=== PATIENT | male | born 1945 | race African-American/Black ===

== ENCOUNTER 2020-02-17 16:52 | Inpatient (IN) | payer OTHER ==
[2020-02-17] VITALS (9 sets, daily range): BP systolic 120–186; BP diastolic 71–93
[~2020-02-17] VITALS: Ht 182.9 cm; Wt 78.0 kg
[2020-02-17 17:43] LABS: ABSOLUTE NEUTROPHILS 5.8 thou/uL (1.4-8.2); BASOPHILS 0.1 % (0.0-2.0); HEMATOCRIT 42.4 % (42.0-52.0); HEMOGLOBIN 13.4 gm/dL (14.0-18.0); LYMPHOCYTES 13.7 % (24.0-44.0); MCH 24.5 pg (26.0-34.0); MCHC 31.5 g/dL (28.0-37.0); MCV 77.7 fL (80.0-100.0); MONOCYTES 6.4 % (1.0-8.0); PLATELET COUNT 170 thou/uL (150-400); POLYS 79.8 % (36.0-66.0); RBC 5.46 mil/uL (4.50-6.00); RDW 17.1 % (10.5-14.5); WBC 7.2 thou/uL (4.0-11.0)
[2020-02-17 18:46] LABS: ALBUMIN 3.7 g/dL (3.4-5.0); CALCIUM 9.1 mg/dL (8.5-10.1); CREATININE 2.7 mg/dL (0.7-1.3); MAGNESIUM 2.2 mg/dL (1.8-2.4); TOTAL BILIRUBIN 0.6 mg/dL (0.2-1.0); TOTAL PROTEIN 8.4 g/dL (6.4-8.2); TROPONIN-I 0.07 ng/mL (<0.06)
[2020-02-17 19:17] LABS: DIRECT BILIRUBIN 0.1 mg/dL (<0.1-0.2)
[2020-02-17 19:21] LABS: POTASSIUM 7.1 mmol/L (3.5-5.1)
[2020-02-17 19:42] LABS: URINE BILIRUBIN NEGATIVE (Negative); URINE BLOOD TRACE (Negative); URINE CLARITY CLEAR; URINE COLOR YELLOW; URINE GLUCOSE-RANDOM* 3+ (Negative); URINE KETONES NEGATIVE (Negative); URINE LEUKOCYTES-REFLEX NEGATIVE (Negative); URINE NITRITE-REFLEX NEGATIVE (Negative); URINE PROTEIN (DIPSTICK) TRACE (Negative); URINE UROBILINOGEN 0.2 E.U./dl (0.2-1.0)
[2020-02-17 20:02] LABS: CALCIUM 8.8 mg/dL (8.5-10.1); CREATININE 2.5 mg/dL (0.7-1.3)
[2020-02-17 20:03] LABS: POTASSIUM 5.6 mmol/L (3.5-5.1)
[2020-02-17] MEDS ORDERED: LISINOPRIL40 MG PO (21:02)
[2020-02-17] MEDS ORDERED: LIPITOR 40 MG T40 M1 PO (21:02)
[2020-02-17] MEDS ORDERED: TRADJENTA5 MG (21:02)
[2020-02-17] MEDS ORDERED: GLIMEPIRIDE4 MG PO (21:02)
[2020-02-17] MEDS ORDERED: CHLORTHALIDONE25 MG PO (21:02)
[2020-02-17] MEDS ORDERED: LANTUSSOLASTAR SUBQ (21:03)
[2020-02-17] MEDS ORDERED: IRON325 M1 PO (21:04)
[2020-02-17] MEDS ORDERED: FISH OIL 1,0001 EAC9 PO (21:04)
[2020-02-17] MEDS ORDERED: B-121000 MC2 PO (21:07)
--- NOTE | 2020-02-17 22:28 | NUR ---
This RN admitted patient to ICU room 241. Patient arrived on insulin gtt and fluids. Discussed patient status with Arina Ackerman NP, awaiting more orders. Patient stable, and settled into room. Admission assessment complete.
[2020-02-18] VITALS (32 sets, daily range): BP systolic 115–187; BP diastolic 56–120
[2020-02-18 00:25] LABS: ALBUMIN 3.9 g/dL (3.4-5.0); CALCIUM 9.1 mg/dL (8.5-10.1); CREATININE 2.2 mg/dL (0.7-1.3); MAGNESIUM 2.2 mg/dL (1.8-2.4); PHOSPHORUS 4.2 mg/dL (2.6-4.7); POTASSIUM 4.5 mmol/L (3.5-5.1)
[2020-02-18 05:10] LABS: HEMATOCRIT 37.6 % (42.0-52.0); MCH 24.3 pg (26.0-34.0); MCHC 31.9 g/dL (28.0-37.0); RBC 4.94 mil/uL (4.50-6.00); RDW 16.4 % (10.5-14.5); WBC 6.8 thou/uL (4.0-11.0)
[2020-02-18 05:32] LABS: BE(vivo) -9.7 mmol/L (-2 to +3); HCO3 14.5 mmol/L (22.0-26.0); PCO2 VENOUS 27.4 mmHg (41.0-51.0); PO2 VENOUS 32.6 mmHg (35.0-45.0)
[2020-02-18 06:03] LABS: ALBUMIN 3.4 g/dL (3.4-5.0); ANION GAP 17 mmol/L (7-16); BUN 57 mg/dL (7-18); CALCIUM 8.6 mg/dL (8.5-10.1); CHLORIDE 100 mmol/L (98-107); CHOLESTEROL 133 mg/dL (<200); CO2 17 mmol/L (21-32); CREATININE 2.2 mg/dL (0.7-1.3); GLUCOSE 273 mg/dL (74-106); HDL CHOLESTEROL 34 mg/dL (>40); LDL CHOLESTEROL 74 mg/dL (<100); MAGNESIUM 2.1 mg/dL (1.8-2.4); PHOSPHORUS 4.3 mg/dL (2.5-4.9); POTASSIUM 5.4 mmol/L (3.5-5.1); SODIUM 134 mmol/L (136-145); TC:HDL 3.9 Ratio (Not establshd); TRIGLYCERIDE 125 mg/dL (<150); VLDL 25 mg/dL (<40)
[2020-02-18 06:21] LABS: SERUM ASSESSMENT Clear
--- NOTE | 2020-02-18 06:34 | NUR ---
Vital signs stable. Patient remains on DKA protocol, labs are trending in the right direction. Patient vomited once last night, still complains of severe nauseau. Patient still complains of severe abdominal pain with minor relief from PRN pain medications. Will continue to monitor.
--- NOTE | 2020-02-18 07:39 | EKG ---
[address] [place] [address] ELECTROCARDIOGRAM REPORT Name: SARAH CONDE Room #: 241-P ADM IN M.R.#: [id number] Admission: 02/17/20 Attend Phys: Korey Pete MD Discharge: Date of : 45 Report #: [id number] [facility] ED Test Date: 2020-02-17 Test Time: 17:09:37 Pat Name: SARAH CONDE Department: Room: [facility] Gender: M Rolled Seat Trimmer: GLADYS : 1945 Requested By: Cheo Tobin Order Number: [id number] MD: Juancho Alvarez Measurements Intervals [place] Rate: 81 P: 24 [place]: 187 QRS: 72 QRSD: 108 T: 47 QT: 349 QTc: 405 Interpretive Statements Sinus rhythm Normal tracing No previous ECG available for comparison Electronically Signed On 02-18-2020 7:38:49 CONVENTION PLANNER by Juancho Alvarez [email or web address] <ELECTRONICALLY SIGNED> By: Juancho Alvarez MD, [facility] 02/18/20 0738 1709 1709 Juancho Alvarez MD, FACC /EPI
--- NOTE | 2020-02-18 08:00 | NUR ---
ASSUMMED CARE FROM THE NIGHT NURSE AT 0700. PATIENT IS ALERT AND RESPONSIVE RATING PAIN 7-8/10 IN ABD. INSULIN DRIP TAPPERED FOR BS
[2020-02-18 11:58] LABS: % SATURATION 7 % (20-39); IRON 17 ug/dL (65-175); MAGNESIUM 1.9 mg/dL (1.8-2.4); POTASSIUM 5.3 mmol/L (3.5-5.1); TIBC 246 ug/dL (250-450)
--- NOTE | 2020-02-18 18:41 | NUR ---
PATIENT IS PROGRESSING TOWARDS OUTCOMES GOALS BLOOD GLUCOSE LEVELS MAINTAINED AND DRIP IN THE MAINTANCE RANGE. UP TO 206 AT 1820. WILL CONTINUE TO MONITOR. ANION GAP CLOSED AT NOON. DR WEST AND DR ESPINOSA AWARE. ORDERS NOTED. O2 SAT IN THE UPPER 90'S AND AFEBRILE. NO RESP DISTRESS NOTED. INFORMED SHIKHA HIS S/O OF HIS COVID TEST RESULTS. PAIN NOW STAYING AT A 3/10 AND SLEEPING AT INTERVALS.
[2020-02-19] VITALS (32 sets, daily range): BP systolic 115–177; BP diastolic 59–110
[2020-02-19 05:33] LABS: ABSOLUTE NEUTROPHILS 7.1 thou/uL (1.4-8.2); BASOPHILS 0.2 % (0.0-2.0); EOSINOPHILS 0.3 % (0.0-3.0); HEMATOCRIT 35.4 % (42.0-52.0); HEMOGLOBIN 11.2 gm/dL (14.0-18.0); MCH 24.5 pg (26.0-34.0); MCHC 31.7 g/dL (28.0-37.0); MCV 77.4 fL (80.0-100.0); MONOCYTES 3.6 % (1.0-8.0); PLATELET COUNT 193 thou/uL (150-400); POLYS 88.9 % (36.0-66.0); RBC 4.57 mil/uL (4.50-6.00); RDW 16.6 % (10.5-14.5)
[2020-02-19 06:21] LABS: FIBRINOGEN 373.8 mg/dL (210-360); PROTIME 10.7 Seconds (9.3-11.4)
[2020-02-19 06:22] LABS: ALBUMIN 3.2 g/dL (3.4-5.0); CALCIUM 8.3 mg/dL (8.5-10.1); CREATININE 1.7 mg/dL (0.7-1.3); MAGNESIUM 1.8 mg/dL (1.8-2.4); POTASSIUM 5.6 mmol/L (3.5-5.1); TOTAL BILIRUBIN 0.6 mg/dL (0.2-1.0); TOTAL PROTEIN 6.8 g/dL (6.4-8.2)
--- NOTE | 2020-02-19 07:16 | HC ---
[facility] [address] CONSULTATION Name: SARAH CONDE Room #: 241-P ADM IN M.R.#: [id number] Admission: 02/17/20 Attend Phys: Korey Pete MD Discharge: Date of : 45 Report #: [id number] THIS REPORT FOR: cc: Kang Paredes MD, Douglas James MD McKittrick,Víctor Payne MD ~ DATE OF SERVICE: 02/18/2020 REQUESTING PHYSICIAN: Korey Pete MD PRIMARY CARE PHYSICIAN: Kang Paredes MD REASON FOR CONSULTATION: Pancreatic mass seen on CT abdomen without contrast. HISTORY OF PRESENT ILLNESS: The patient is a 75-year-old male who has about a 3-5 antecedent history of nausea, vomiting, diarrhea, was found to be COVID positive by PCR. He is also thought to have a diabetic ketoacidosis. CT abdomen and pelvis without contrast done on 02/16 revealed what they described as an indeterminate mass measuring 2.7 x 2.8 x 3.1 cm on series 2, image 42-51 just medial to the inferior tip of the spleen along the distal margin of the pancreatic tail. There is indeterminate ovoid area of nodularity within the medial and the right adrenal gland measuring 1.4 x 1.0 cm. Left kidney not visualized suggesting prior nephrectomy. Chest x-ray during the same time showed no acute abnormalities. The patient denies any recent headache, fevers, chills, new shortness of breath, new arm or leg swelling, blood in his urine or stool, significant weight change. Does admit that he thought he is not the best at managing his diabetes. PAST MEDICAL HISTORY: Notable for the left nephrectomy, he thinks about 14 years ago at [facility]. He seems to recognize the name of Dr. Bhakta as his previous urologist, but he is not sure. It sounds like it was negative, did not receive any adjuvant therapies. Also history of carotid stenosis, history of hypertension, history of hyperlipidemia, history of diabetic neuropathy, history of type 2 diabetes, also renal insufficiency. SOCIAL HISTORY: Retired, used to work help [employer] at the [employer]. Smoked for about 40-pack year, stopped 10 years ago. Occasional alcohol. Indeterminate street drugs. FAMILY HISTORY: Mostly diabetes and hypertension in his children and grandchildren, sounds like the children are pretty healthy. LABORATORY REVIEW: Here in the hospital notable for creatinine of 2.2, down [facility] [address] [place] [address] CONSULTATION Name: SARAH CONDE Room #: 241-P ADM IN .R.#: [id number] Admission: 02/17/20 Attend Phys: Korey Pete MD Discharge: Date of : 45 Report #: [id number] from 2.7, unclear baseline. AST slightly elevated at 51, lipase 251. Total bilirubin is 0.6, glucose on admit was 491, today is 273. Alkaline phosphatase 139, ALT 47. Albumin 3.4. Acetone on admission was 1.74, which is elevated. White count 6.8, hemoglobin 12, down from 13, MCV 76.0, RDW 16.4, platelet 190. Differential mostly normal. Sed rate 25. Influenza A and B negative. COVID PCR positive. Ferritin 80. UA, 3+ glucose, trace blood. MEDICATIONS: At this time currently include thiamine 100 mg daily, ascorbic acid 1500 mg b.i.d., azithromycin 500 mg IV daily, methylprednisolone 40 IV b.i.d., docosahexaenoic acid fish oil 1000 mg daily, lisinopril 40 daily, ferrous sulfate 65 daily, atorvastatin calcium 40 daily, heparin 5000 units b.i.d. subQ famotidine 20 daily, zinc 220 mg t.i.d., ceftriaxone 1 g q. 24 hours, hydralazine p.r.n., Tylenol p.r.n., Zofran p.r.n., insulin sliding scale. PHYSICAL EXAMINATION: VITAL SIGNS: Height is 6 feet, which is 182.9 cm. Weight is 170 pounds 6.7 ounces or 77.3 kilograms. Blood pressure recently 128/88, pulse 80, temperature 98.1, respirations 20. HEENT: Face is symmetrical. MOOD: Pleasant, conversant. NEUROLOGIC: Face is symmetrical. Speech and thought pattern normal. Arm and leg movement appropriate. LYMPHATICS: No enlarged lymph nodes in the supraclavicular, cervical, axillary or inguinal region. ABDOMEN: Barely obese. No obvious masses, nontender. EXTREMITIES: There may be some trace edema. ASSESSMENT AND PLAN: 1. Pancreatic tail mass measuring 2.7 x 2.8 x [address] abdomen without contrast. We will ask to get old CT abdomen from [facility] for comparison. If unavailable, would consider MRI of abdomen with and without contrast once feeling better to determine whether this is a real mass. May need to consider EUS, would also ask [facility] for path report from nephrectomy. 2. History of left kidney cancer, roughly 2006. We will try to obtain pathology report and recent notes from [facility]. 3. COVID positive by PCR. Defer possibility of remdesivir and convalescent plasma to others. 4. Renal insufficiency. Management per others and monitoring of medications and serial creatinines. 5. Diabetic ketoacidosis and history of type 2 diabetes. Defer insulin and management per others. 6. Hypertension. DAIN inhibitors and meds per others. 7. Hyperlipidemia, statins per others. 8. Peripheral neuropathy, management per others. [facility] [address] [place] [address] CONSULTATION Name: SARAH CONDE Room #: 241-P ADM IN M.R.#: [id number] Admission: 02/17/20 Attend Phys: Korey Pete MD Discharge: Date of : 45 Report #: [id number] 9. Past tobacco use. Encouraged continued cessation. We will follow with you. 10. Microcytic mild anemia. Ferritin normal range, but could be inflammatory. We will need to clarify with the patient what workup has been done when I see the patient. 11. We will need to ask about endoscopies. <ELECTRONICALLY SIGNED> By: Víctor Leal MD 02/19/20 0716 0852 0957 Víctor Leal MD /nt
--- NOTE | 2020-02-19 10:26 | NUR ---
ASSESSMENT: CM REVIEWED CHART AND ATTEMPTED TO CALL PT. PT IS IN ENHANCED ISOLATION DUE TO COVID 10. PT ALSO HAS HX OF DIAEBTES MELLITUS AND ON ADMISSIONS WAS IN DKA AND IS ON INSULIN GTT. PT LIVES WITH SIGNIFICANT OTHER IN AN APT. CM REACHED OUT TO SHIKHA HIS SIGNIFICANT OTHER AND SHE REPORTS SHE IS CURRENTLY ON HER WAY TO GO GET TESTED SINCE HE IS COVID POSITIVE. PT LIVES IN AN APT WITH HER. SHE REQUESTED TO BE CONTACTED BACK LATER IN DAY SHE IS AT APPT TO GET TESTED. CM WILL CONTINUE TO FOLLOW TO ASSIST NEEDED.
--- NOTE | 2020-02-19 12:18 | HC ---
[facility] [place] [address] CONSULTATION Name: SARAH CONDE Room #: [facility] IN M.R.#: [id number] Admission: 02/17/20 Attend Phys: Korey Pete MD Discharge: Date of : 45 Report #: [id number] THIS REPORT FOR: cc: Kang Paredes MD, Douglas James MD Al-Mubaslat, Ahmad MD ~ DATE OF SERVICE: 02/18/2020 ENDOCRINE CONSULTATION NOTE CONSULTING PHYSICIAN: Dr. Korey Pete REASON FOR CONSULTATION: DKA, type 2 diabetes mellitus. HISTORY OF PRESENT ILLNESS: This is a 75-year-old male patient whose medical background is significant for multiple medical issues including type 2 diabetes mellitus as well as history of renal cancer, hypertension, and hyperlipidemia. The patient presented to the ER in the context of progressive weakness and fatigue for several days prior to presentation. This was also associated with intractable nausea and vomiting as well as chest discomfort. On arrival to the ER, the patient was found to have metabolic changes are consistent with DKA and was then admitted to the ICU for further care and monitoring. The patient's history is noted for hypertension, hyperlipidemia as well as peripheral neuropathy. The patient is typically maintained on a combination of glimepiride 4 mg daily, linagliptin 5 mg daily as well as Lantus insulin 26 units daily. However, he rarely monitors his blood glucose values at home. The patient denies having had the significant weight changes or severe frequent headaches over the past few months. REVIEW OF SYSTEMS: CONSTITUTIONAL: Fatigue, tiredness, no fever or chills. HEENT: Negative for sore throat, sinus pain or ear drainage. PULMONARY: Occasional shortness of breath and cough, but no hemoptysis. CARDIAC: Palpitations, chest discomfort, lightheadedness, but not syncope. GASTROINTESTINAL: Abdominal discomfort, intractable nausea, vomiting and diarrhea. NEUROLOGY: Baseline issues with peripheral neuropathy, but not seizure activity or loss of consciousness. Otherwise, review of systems noncontributory other than those mentioned in HPI. PAST MEDICAL HISTORY: 1. Type 2 diabetes mellitus. [facility] [address] [place] [address] CONSULTATION Name: SARAH CONDE Room #: 241-P [facility] IN M.R.#: [id number] Admission: 02/17/20 Attend Phys: Korey Pete MD Discharge: Date of : 45 Report #: [id number] 2. Hypertension. 3. Hyperlipidemia. 4. Arthritis. 5. Peripheral diabetic neuropathy. 6. History of renal cancer. PAST SURGICAL HISTORY: Left nephrectomy, left shoulder replacement, left carotid endarterectomy, left knee arthroscopy. OUTPATIENT MEDICATIONS: Include linagliptin 5 mg daily, glimepiride 4 mg daily, Lantus insulin 26 units daily, lisinopril 40 mg daily, atorvastatin 40 mg daily, chlorthalidone 25 mg daily, ferrous sulfate 65 mg daily, fish oil supplements and vitamin B12 1000 mcg daily. ALLERGIES: No known drug allergies. FAMILY HISTORY: Noncontributory. SOCIAL HISTORY: The patient denies the use of tobacco or illicit drugs. He drinks alcohol only rarely. PHYSICAL EXAMINATION: GENERAL: I did not enter the patient's ICU room due to the lack of immediate availability of protective gear. However, I have inspected through the glass of a window as well as the glass room door and discussed his status in detail with the nursing staff and reviewed his inflow chart and vital signs at length. The patient was lying supine in bed, seems comfortable, not in apparent distress. VITAL SIGNS: Blood pressure 128/88 mmHg, heart rate is 80 beats per minute, respirations 20 per minute, temperature 36.7 degrees Celsius. CONSTITUTIONAL: He is lying supine in bed, does not appear to be in pain or distress. HEENT: Intact extraocular motions. CHEST: Upward symmetrical chest wall movement without observations of tachypnea. NEUROLOGY: Moves all extremities spontaneously, responsive to gestures, sight seems to be in a normal affect. LABORATORY RESULTS: On arrival, blood glucose was at 286 mg/dL. However, it has been under 180 mg/dL consistently for the past few hours. Sodium 134; potassium 5.4; chloride 100; CO2 of 17, on arrival, this was 10; anion gap 17, on arrival 25; BUN 57; creatinine 2.2; AST 51; lipase 251; total bilirubin 0.6; direct bilirubin 0.1; calcium 8.6; phosphorus 4.3; magnesium 2.1; alkaline phosphatase 139; ALT 47; total protein 8.4; albumin 3.4; EGFR 36. Total CPK [facility] [address] [place] [address] CONSULTATION Name: SARAH CONDE Room #: 241-P [facility] IN M.R.#: [id number] Admission: 02/17/20 Attend Phys: Korey Pete MD Discharge: Date of : 45 Report #: [id number] 264. Troponin 0.07. Total cholesterol 133, triglycerides 125, HDL 34, LDL 74. White blood count 6.8, hemoglobin 12, hematocrit 37.6, platelets 190. He is COVID-19 positive. Hemoglobin A1c has been ordered and is pending. A CT scan of the abdomen and pelvis was also performed on arrival and was noted for patchy in bed like ground glass opacities within the inferior left lower lobe, which could be infectious or personal service representative of atelectasis. Indeterminate mass-like along the margin of the tail of the pancreas measuring 2.7 x 2.8 x 3.1 cm. Primary pancreatic mass or metastatic disease cannot be excluded. Indeterminate ovoid nodule mass within the medial limb of the right adrenal gland measuring 1.4 x 1 cm and again metastatic disease cannot be excluded. ASSESSMENT AN PLAN: 1. Diabetic ketoacidosis. The patient presented in a clinical state and with metabolic abnormalities that are consistent with diabetic ketoacidosis. He had been initiated on the appropriate management with intravenous insulin therapy as well as IV fluid support and has certainly shown standard improvement as per his blood glucose values falling under adequate control as well as his metabolic parameters of CO2 and anion gap improving. However, some of these are still to be fully normalized. Given the continued metabolic abnormalities encountered as well as the need to utilize IV glucocorticoids in the patient's minimal p.o. intake, I believe that he would be best served by maintaining IV insulin therapy for the time being. Continue with IV insulin therapy as per the [facility] DKA protocol and maintain blood glucose monitoring hourly as per protocol. The patient will be considered for transition to subcutaneous insulin therapy once he demonstrates adequate clinical stability to do so. 2. Type 2 diabetes mellitus. Longstanding and maintained on a combination of basal insulin and oral antidiabetic therapy. However, the patient does not provide much glycemic data to offer insight into his recent level of control. Hemoglobin A1c has been ordered and is pending and should help shed some light on his overall level of control recently. I suspect that it would prove to be suboptimal. As noted above, the patient is currently being managed with an IV insulin and transition to subcutaneous therapy. He would likely be placed on multiple daily injections of basal bolus insulin. These doses will be determined as per his recorded IV insulin needs at that time. 3. Adrenal mass. On arrival, the patient was evaluated with a CT scan of the abdomen and pelvis and has shown concerning features of potential pancreatic mass as well as adrenal mass, both of which could represent a metastatic process. It is worth [address] [address] CONSULTATION Name: SARAH CONDE Room #: [facility] IN M.R.#: [id number] Admission: 02/17/20 Attend Phys: Korey Pete MD Discharge: Date of : 45 Report #: [id number] noting that the patient has a background that is noted for renal cancer. While this gets evaluated, I would like to assess the functional outlook of this adrenal mass by ordering an aldosterone renin activity, plasma metanephrines as well as a consideration of cortisol excess. Assessment although the patient does not appear to be cushingoid and therefore might be exempted from this part of the evaluation. This is seen as necessary despite the initial suspicious outlook for metastases because malignant adrenal lesions can also be occasionally functional. Further recommendations will be based on these findings. 4. Hyperlipidemia. The patient is known to have hyperlipidemia and is maintained on atorvastatin 40 mg daily. His lipid panel done on arrival indicates adequate control. He is to continue with the same therapy once clinically stable. 5. Positive COVID-19 pneumonitis. The patient was documented as having an active COVID-19 infection. He is currently receiving therapy accordingly including with azithromycin, Rocephin, IV glucocorticoids and seems to be doing rather well from the pulmonary standpoint thus far. I certainly appreciate this consultation by Dr. Korey Pete. <ELECTRONICALLY SIGNED> By: Alexandra Dick MD 02/19/20 1218 1033 1113 Alexandra Dick MD /nt
--- NOTE | 2020-02-19 14:26 | HC ---
[facility] [place] [address] CONSULTATION Name: SARAH CONDE Room #: [facility]- ADM IN M.R.#: [id number] Admission: 02/17/20 Attend Phys: Korey Pete MD Discharge: Date of : 45 Report #: [id number] THIS REPORT FOR: cc: Kang Paredes MD, Douglas James MD Geha,Grover Hoyos MD ~ DATE OF SERVICE: 02/18/2020 INFECTIOUS DISEASE CONSULTATION REASON FOR CONSULTATION: Evaluate COVID-19 and sepsis. HISTORY OF PRESENT ILLNESS: The patient is a 75-year-old who presents to the Emergency Room with ketoacidosis in the setting of type 2 diabetes and a 3-day history of nausea, vomiting, diarrhea, general malaise, and anorexia. He was placed in Intensive Care Unit, placed on insulin drip, IV fluids and has been seen by consultants. He does have a history of renal cell carcinoma, status post left nephrectomy. Imaging has shown ground glass opacities in his lung bases as well as a 3 x 3 cm mass in the tail of the pancreas and right adrenal gland mass. He has had general debility with peripheral neuropathy. No known COVID exposure, although his has been ill for several days before he got sick. He has had no headaches, loss of sense of taste or smell. He has had no cough or sputum production. No pleuritic chest pain or hemoptysis. No palpitations. The nausea and vomiting has improved. No diarrhea. REVIEW OF SYSTEMS: A 14-point review of system was negative other than what has been described above. PAST MEDICAL HISTORY: Diabetes, renal cell carcinoma, left nephrectomy, carotid stenosis, hypertension, hyperlipidemia, degenerative arthritis, peripheral neuropathy, left total shoulder replacement, left carotid endarterectomy, and left knee arthroscopic surgery. FAMILY HISTORY: Coronary artery disease and diabetes. SOCIAL HISTORY: Past smoker, occasional alcohol use. ALLERGIES: None known. MEDICATIONS: As noted on his MAR which was reviewed. PHYSICAL EXAMINATION: VITAL SIGNS: He was afebrile and hemodynamically stable. GENERAL: He was alert and cooperative. SKIN: Without rash or decubitus. No palpable adenopathy. [facility] [address] [place] [address] CONSULTATION Name: SARAH CONDE Room #: 241-P [facility] IN M.R.#: [id number] Admission: 02/17/20 Attend Phys: Korey Pete MD Discharge: Date of : 45 Report #: [id number] HEENT: Eyes without scleral icterus. Mouth without mucositis. Dentition in fair repair with multiple teeth missing. NECK: Supple. LUNGS: Clear to auscultation without adventitial sounds. HEART: Regular, without murmur, gallop or rub. ABDOMEN: Soft and nontender with no hepatosplenomegaly or mass. GENITOURINARY: External genitalia without mass or lesion. RECTAL: Not performed. EXTREMITIES: With trace edema in both lower extremities. Decreased sensation to fine touch in both feet. Strength was symmetric. PSYCH: Mood is without anxiety or depression. LABORATORY STUDIES: Reviewed. MICROBIOLOGY: Reviewed. IMAGING: Chest x-ray and CT scan of the abdomen and pelvis reviewed. IMPRESSION: 1. COVID-19 infection. Oxygenation remains stable on room air. He does have mild ground glass opacities on CT scan. 2. Diabetic ketoacidosis, improved. 3. Peripheral neuropathy. 4. Acute renal failure with history of left nephrectomy for renal cell carcinoma. 5. Pancreatic mass and right adrenal mass concerning for malignancy. 6. Generalized debility. RECOMMENDATIONS: We will continue with ivermectin and multivitamins. The patient does not qualify for Remdesivir at this point. Monitor chest x-ray and oxygen saturation. Control diabetes. Continue with fluids and monitoring renal function. Oncology service has been consulted. Likely need tissue sample to confirm this process. We will continue ICU support. <ELECTRONICALLY SIGNED> By: Grover Desai MD 02/19/20 1426 0030 0047 Grover Desai MD /nt
--- NOTE | 2020-02-19 17:03 | NUR ---
ASSUMED CARE AT 0700. PATIENT PROGRESSING TOWARDS THE PLAN OF CARE EVIDENCED BY DISCONTINUED USE OF INSULIN GTT TO MANAGE BS. BS UNDER CONTROL. TRANSFER ORDERS IN PER DR. ESPINOSA.
[2020-02-20] VITALS (14 sets, daily range): BP systolic 119–190; BP diastolic 68–103
--- NOTE | 2020-02-20 06:00 | NUR ---
A VERY DELIGHTFUL GENTLEMAN AWAKE AND ALERT. IN ISOLATION FOR POSITIVE COVID VSS SINUS RHYTHM. VOIDS PER URINAL. TORDAL 1 X FOR EPIGASTRIC PAIN. SLEPT MOST OF NIGHT. DKA PROTOCAL COMPLETE. PROGRESSING TOWARD GOALS. AWAITING TO TX TO 3 WEST. CCU TELE OVERFLOW
[2020-02-20 08:21] LABS: CALCIUM 8.8 mg/dL (8.5-10.1); CREATININE 1.8 mg/dL (0.7-1.3); POTASSIUM 5.1 mmol/L (3.5-5.1)
[2020-02-20] MEDS ORDERED: PREDNISONE 20 M20 M1 PO (11:08)
[2020-02-20] MEDS ORDERED: AZITHROMYCIN500 MG PO (11:08)
--- NOTE | 2020-02-20 12:18 | NUR ---
ASSUMED CARE AT 0700, ASSESSMENT AND VITAL SIGNS COMPLETED PER ICU PROTOCOL. DR. ESPINOSA ROUNDED THIS AM, PLAN OF CARE DISCUSSED, PT TO BE DISCHARGED HOME. DR. MATHIAS ROUNDED, SPOKE WITH PT ABOUT HOME CARE AND HEALTH.
== END 2020-02-20 12:00 | disposition home or self-care (01) | DRG 177 ==
LOC: ER 16:52 → ICU 20:14 → EROBS 20:14 → ICU 21:26
PROVIDERS: Emergency Medicine; Internal Medicine; Internal Medicine Hematology & Oncology; Nurse Practitioner Family; Specialist; ADMIT Hospitalist; ATTEND Hospitalist
DX: U07.1 COVID-19 (principal); E11.10 Type 2 diabetes mellitus with ketoacidosis without coma; N17.0 Acute kidney failure with tubular necrosis; J12.82 Pneumonia due to coronavirus disease 2019; E78.5 Hyperlipidemia, unspecified; E87.5 Hyperkalemia; K86.9 Disease of pancreas, unspecified; I10 Essential (primary) hypertension; M19.90 Unspecified osteoarthritis, unspecified site; E11.42 Type 2 diabetes mellitus with diabetic polyneuropathy; D50.9 Iron deficiency anemia, unspecified; K21.9 Gastro-esophageal reflux disease without esophagitis; E11.40 Type 2 diabetes mellitus with diabetic neuropathy, unspecified; Z96.612 Presence of left artificial shoulder joint; Z85.528 Personal history of other malignant neoplasm of kidney
CPT/HCPCS: 10078

== ENCOUNTER 2020-02-23 18:22 | Inpatient (IN) | payer OTHER ==
[~2020-02-23] VITALS: Ht 182.9 cm; Wt 75.7 kg
[~2020-02-23 18:22] MED LIST: AZITHROMYCIN500 MG PO; B-121000 MC2 PO; CHLORTHALIDONE25 MG PO; FISH OIL 1,0001 EAC9 PO; GLIMEPIRIDE4 MG PO; IRON325 M1 PO; LANTUSSOLASTAR SUBQ; LIPITOR 40 MG T40 M1 PO; LISINOPRIL40 MG PO; PREDNISONE 20 M20 M1 PO; TRADJENTA5 MG
[2020-02-23 18:23] VITALS: BP 125/86
[2020-02-23 19:12] LABS: ABSOLUTE NEUTROPHILS 5.8 thou/uL (1.4-8.2); BASOPHILS 0.2 % (0.0-2.0); HEMATOCRIT 41.9 % (42.0-52.0); HEMOGLOBIN 13.3 gm/dL (14.0-18.0); LYMPHOCYTES 8.6 % (24.0-44.0); MCH 24.4 pg (26.0-34.0); MCHC 31.8 g/dL (28.0-37.0); MCV 76.6 fL (80.0-100.0); MONOCYTES 11.3 % (1.0-8.0); PLATELET COUNT 264 thou/uL (150-400); POLYS 79.9 % (36.0-66.0); RBC 5.48 mil/uL (4.50-6.00); RDW 16.9 % (10.5-14.5); WBC 7.2 thou/uL (4.0-11.0)
[2020-02-23 19:20] LABS: ANION GAP 11 mmol/L (7-16); BUN 36 mg/dL (7-18); CALCIUM 9.9 mg/dL (8.5-10.1); CHLORIDE 102 mmol/L (98-107); CO2 19 mmol/L (21-32); CREATININE 1.9 mg/dL (0.7-1.3); GLUCOSE 83 mg/dL (74-106); SODIUM 132 mmol/L (136-145)
[2020-02-23 19:31] LABS: ALBUMIN 3.1 g/dL (3.4-5.0); DIRECT BILIRUBIN 0.1 mg/dL (<0.1-0.2); LIPASE 351 U/L (73-393); MAGNESIUM 2.1 mg/dL (1.8-2.4); PHOSPHORUS 3.3 mg/dL (2.6-4.7); SGOT 41 U/L (15-37); SGPT 42 U/L (16-63); TOTAL BILIRUBIN 0.5 mg/dL (0.2-1.0); TOTAL PROTEIN 7.6 g/dL (6.4-8.2); TROPONIN-I <0.06 ng/mL (<0.06)
[2020-02-24 06:04] LABS: HEMOGLOBIN 11.8 gm/dL (14.0-18.0); MCH 24.1 pg (26.0-34.0); MCV 75.5 fL (80.0-100.0); RBC 4.9 mil/uL (4.50-6.00); RDW 16.8 % (10.5-14.5); WBC 6.9 thou/uL (4.0-11.0)
[2020-02-24 06:17] LABS: ANION GAP 13 mmol/L (7-16); BUN 32 mg/dL (7-18); CALCIUM 9.1 mg/dL (8.5-10.1); CHLORIDE 106 mmol/L (98-107); CO2 19 mmol/L (21-32); CREATININE 1.6 mg/dL (0.7-1.3); GLUCOSE 61 mg/dL (74-106); POTASSIUM 4.2 mmol/L (3.5-5.1); SODIUM 138 mmol/L (136-145)
[2020-02-24 06:24] LABS: TROPONIN-I <0.06 ng/mL (<0.06)
--- NOTE | 2020-02-24 07:16 | EKG ---
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: JULIO : 1945 Requested By: Cheo Tobin Order Number: [id number] MD: Delvin Decker Measurements Intervals [place] Rate: 91 P: -2 AL: 146 QRS: 43 QRSD: 86 T: 43 QT: 336 QTc: 414 Interpretive Statements Sinus rhythm Baseline wander in lead(s) V3 Compared to ECG 02/17/2020 17:09:37 No significant changes Electronically Signed On 02-24-2020 7:16:31 SAFETY ASSISTANT by Delvin Decker [email or web address] <ELECTRONICALLY SIGNED> By: Delvin Decker MD, [facility] 02/24/20 0716 1837 36 Delvin Decker MD, FACC /EPI
[2020-02-24 08:09] LABS: CHOLESTEROL 120 mg/dL (<200); HDL CHOLESTEROL 41 mg/dL (>40); LDL CHOLESTEROL 62 mg/dL (<100); TC:HDL 2.9 Ratio (Not establshd); TRIGLYCERIDE 85 mg/dL (<150); VLDL 17 mg/dL (<40)
--- NOTE | 2020-02-24 11:18 | NUR ---
75-year-old male who is Covid positive with a history of DKA, pancreatic mass, left renal cell carcinoma s/p left nephrectomy, MOLLY, HTN, HLD, DM2, peripheral neuropathy, and GERD who presents to the ED with c/o chest pain and abdominal pain with n/v. The patient has been admitted to a hospitalist with Intractable abd pain with n/v, Chest pain, DM@, 02-17-20 = COVID, HT, HLD, SHERIE and hx of pancreatic lesion with questionable mets. GI and Cardiology have been consulted. Patient was discharge from [facility] on 02-20-20 and CM notes lives with s/o Tonya Gaming at [phone] one step to enter into home where all ADL needs are on one level. Patient resumed on [facility] at discharge and his PCP is Dr. Kang Paredes. CM will follow for discharge needs.
[2020-02-24 13:11] VITALS: BP 127/57
--- NOTE | 2020-02-24 13:53 | NUR ---
ATTEMPTED TO CALL REPORT AT 1345 WAS TOLD RN IS IN A ROOM; CALLED AGAIN AT THIS TIME AND WAS INFRMED THE RN HAD GONE TO LUNCH - WAS PLACED ON HOLD FOR 5MIN WAITING TO SPEAK W/ CHARGE NURSE
[2020-02-24 14:06] VITALS: BP 127/57
[2020-02-24 14:29] VITALS: BP 121/79
--- NOTE | 2020-02-24 15:00 | NUR ---
INITIAL ASSESSMENT: PARRISH reviewed chart and spoke with nursing. Pt was admitted from home due to abdominal pain/intractable nausea and vomiting. GI consulted. Pt placed in Enhanced Isolation due to COVID-19. Pt was recently discharge home from [facility] on 02/19. Pt is currently afebrile and on 5L of O2. PARRISH placed call to pt's room. No answer. PARRISH spoke with pt's s/o, Tonya, via phone. Introduced role of PARRISH. Pt has not been doing well since being discharged home. Pt has not been eating due to nausea, vomiting and diarrhea. Pt's PCP (Dr. Kang Paredes) instructed pt to return to the ER. Pt is normally alert/orientated x 4. Pt and Tonya live at home. 1 step to enter their home. No steps inside. Pt has a cane. Pt has used [facility] in the past. Pt's s/o thought pt would have HH when discharged on 02/19. PARRISH reviewed chart. No orders for HH were written at time of discharge. Pt's s/o requests referral to [facility]. No hx of post-acute placement. farm planner to fax referral to [facility]. PARRISH provided Tonya with contact info for SW, nurses station and pt's room. PARRISH is following to assist as needed with discharge planning.
--- NOTE | 2020-02-24 15:58 | NUR ---
FAXED REFERRAL TO [facility]. CONFIRMED THEY RECEIVED AND WILL CALL BACK AFTER REVIEWING. P [phone]; FAX [phone]
--- NOTE | 2020-02-24 16:38 | NUR ---
EVAMERLIN ADMITTED TO ROOM AT THIS TIME. RESPIRATIONS ARE EVEN NON LABORED. HE IS VERY DIFFICULT ANSWERING QUESTIONS FROM NURSE. HE IS HOWEVER ALERT ORIENTED X4. CONT OF BOWEL AND BLADDER. STATES HE USES A CANE AT HOME. WILL CONT WITH PLAN OF CARE.
[2020-02-24 19:03] VITALS: BP 141/100
--- NOTE | 2020-02-24 22:29 | NUR ---
PT RESTING IN BED, POSITION DURING VS AND ASSESSMENT. LUNGS WITH WHEEZES. O2 SAT ON ROOM AIR 93%. PT BECAME MORE TALKATIVE LATER IN SHIFT, REQUESTED CL LIQ SNACK, ASKED QUESTION RE PLAN FOR COLONSCOPY. PT DID NOT CALL FOR ASSITANCE WHEN USING URINAL AND BED ALARM SOUNDED. PT WAS STEADY WHEN SITTING UP IN BED. PT REPORTS AMBULATING AT HOME WIHT CANE.
--- NOTE | 2020-02-25 03:19 | NUR ---
PT REPORTED ABD GENERALIZED PAIN. PT PROVIDED PRN TYLENOL. HE STATED TYLENOL AND MORPHINE DO NOT WORK ONLY FLORINEF. PT HAD TO BE AWAKENED TO TAKE THE TYLENOL. PT RETURNED TO SLEEP. PROVIDER UPDATED.
[2020-02-25 04:53] VITALS: BP 129/80
--- NOTE | 2020-02-25 06:04 | NUR ---
PT DECLINED HS MEDS AND AM MEDS. PT STATED THE DRS HAVE KNOWN ABOUT HIS ABD PAIN STINGING FOR 10 DAYS, HE SAID THE PLAN IS FOR A COLONOSCOPY TO GO IN AND TAKE A SAMPLE TO SEE WHAT IT IS. PT STATED HE WANTS IT TAKEN OUT. PT STATED THE ONLY MEDICATION HE HAS TAKEN THAT WORKS IS AN F WORD THAT GOES IN HIS IV, BUT THE DRS HAVE DECLINED TO ORDER IT.
[2020-02-25 06:28] LABS: HEMATOCRIT 36.7 % (42.0-52.0); HEMOGLOBIN 11.7 gm/dL (14.0-18.0); RBC 4.89 mil/uL (4.50-6.00); RDW 16.7 % (10.5-14.5); WBC 7.2 thou/uL (4.0-11.0)
[2020-02-25 07:17] LABS: POTASSIUM 4.7 mmol/L (3.5-5.1)
[2020-02-25 07:18] LABS: CALCIUM 9.5 mg/dL (8.5-10.1); CREATININE 1.7 mg/dL (0.7-1.3)
[2020-02-25 08:29] VITALS: BP 89/45
[2020-02-25 08:51] VITALS: BP 88/60
--- NOTE | 2020-02-25 09:23 | NUR ---
PARRISH received call from Pawan at [facility] ([phone]) stating he can assist with providing in-network providers for post-acute needs. PARRISH returned call and left voice message stating HH referral has been sent to [facility]. Will need to confirm that [facility] is in-netork with pt's insurance. Reviewed pt's chart. Pt is afebrile and currently requiring 6L of O2. GI is following due to abdominal pain. Pt will need an EGD as an outpatient. PARRISH is following to assist as needed with discharge planning.
--- NOTE | 2020-02-25 12:52 | NUR ---
CARE ASSUMMED AT 0700, ALERT AND ORIENTED X4, PT DENIES NAUSEA AND VOMITTING. COMPLAINS OF SHARP, SEVERE ABDOMNINAL PAIN, DR. GOLD MADE AWARE. PT ON 6L OF OXYGEN, SOB WITH EXERTION. PT UP WITH ONE ASSIST. FALL PRECAUTIONS IN PLACE. WILL CONTINUE TO MONITOR.
[2020-02-25 16:36] VITALS: BP 85/68
[2020-02-25 20:06] VITALS: BP 121/69
--- NOTE | 2020-02-25 22:08 | NUR ---
PT RESTING IN BED, NOT IN POSITION. TALKING WITH NURSE DIRECTLY, BLUNTED AFFECT. O2 PER NC, LUNG CRACKLES. PT STATED HE HAS HAD A LARGE DIARRHEA EPISODE. PT PROVIDED VAL CARE AND LINEN CHANGE. PTS HOME CLOTHES RINSED AND PLACED IN BELONGINGS BAG. PER PT REQUEST HIS LIFE PARTNER CALLED AND SHE WILL OIL AND GAS RECRUITER DIRTY CLOTHES TOMORROW AND BRING IN CLEAN. PT REPORTED ORAL PAIN MEDICATIONS TAKE OFF THE EDGE OF HIS ABD PAIN, AND HE FEELS BETTER. PT COMPLIANT WITH HS MEDS. BED ALARM ON.
[2020-02-26 03:09] VITALS: BP 124/69
[2020-02-26 07:37] VITALS: BP 136/64
--- NOTE | 2020-02-26 10:56 | NUR ---
CARE ASSUNED AT 0700, PT SEEM MUCH MORE PLEASANT THIS AM, STATED PAIN IS LITTLE BIT CONTROLLED.ON 3L OF OXYGEN, NO SIGNS OF DISTRESS. PT CONTINUE TO BE ON CLEAR LIQUID DIET. FALL PRECAUTIONS IN PLACE. WILL CONTINUE TO MONITOR.
--- NOTE | 2020-02-26 14:56 | NUR ---
NOTE PER [facility]: PARRISH spoke with nursing and attending physician. Pt remains in Enhanced Isolation. Possible weekend discharge. Pt needs an EGD and it might be done as an outpatient. Should pt be ready for discharge home over the weekend, [facility] is able to accept pt on service and can start services on Saturday. PARRISH updated Tremaine at [facility]. Finalized discharge orders will need to be faxed to when available. PARRISH is following to assist as needed with discharge planning. [facility]- SHIV Pizarro
[2020-02-26 15:33] VITALS: BP 98/70
[2020-02-26 19:54] VITALS: BP 128/74
[2020-02-27 03:26] VITALS: BP 116/60
--- NOTE | 2020-02-27 05:48 | NUR ---
PROGRESS PT ALERT AND ORIENTED X 3 BUT CONFUSED, HAVING SMEARS OF BM THAT IS NOT LIQUID BUT WIPING WITH CHUX PAD, PAPER TOWELS, ETC. C/O PAIN IN ABDOMEN AND ESOPHAGUS OXYCODONE GIVEN WITH EFFECT PT SLEPT FOR AWHILE AFTER. WHEN AWAKE HE IS CONSTANTLY WORRIED ABOUT SMEARS OF BM. HE HAD A LARGE BM ON DAY SHIFT . SKIN C/D/I BED BATH GIVEN AND LINEN CHANGED A FEW TIMES THIS SHIFT. ON 3 LITERS O2 VIA NASAL CANNULA DESATS WHEN ITS REMOVED REPLACED CANNULA AND PT KEPT IT ON BETTER. MASS NOTED IN PANCREAS TAIL TO HAVE EGD AND FURTHER EVALUATION AN OUTPATIENT.
[2020-02-27 07:40] VITALS: BP 108/52
[2020-02-27] MEDS ORDERED: CARAFATE 11 GM/10 M1 PO (10:54)
[2020-02-27] MEDS ORDERED: PROTONIX40 M2 PO (10:55)
[2020-02-27] MEDS ORDERED: PERCOCET 10-321 EAC1 PO (10:56)
[2020-02-27 11:48] VITALS: BP 108/52
[2020-02-27 14:06] VITALS: BP 115/79
[2020-02-27 15:44] VITALS: BP 117/62
--- NOTE | 2020-02-27 16:45 | NUR ---
RN ASSUMED PT'S CARE AT 0700AM, PT IS A&OX3, PT REMAINS IN ENHANCED ISOLATION , PT 'S VS ARE STABLE, PT DOES NOT HAVE N/V AND PAIN BY THIS TIME, RN RECEIVED ORDER TO DC PT TO HOME, RN HAS REPORTED TO ABOUT PT FELL TIRED AND PT DOES NOT EAT AT MEAL TIME , DR ORDER IV NS @ 500ML/HR , TOLTAL 1000ML , PT FELL BETTER NOW. RN HAS CALLED PT'FAMILY ABOUT PT MAY DC TO HOME TODAY.
--- NOTE | 2020-02-27 19:05 | NUR ---
PT'S FAMILY TALKBACK HOST PT ABOUT 1850PM, RN HAS GIVING DISCHARGE TEACHING TO PT AND PT'S FAMILY , THEY UNDERSTAND WELL .
== END 2020-02-27 18:50 | disposition home or self-care (01) | DRG 377 ==
LOC: ER 18:22 → 3W 19:51 → EROBS 19:51 → 3W 02-24 14:06
PROVIDERS: Emergency Medicine; Nurse Practitioner Adult Health; Nurse Practitioner Family; ADMIT Hospitalist; ATTEND Hospitalist
DX: K92.1 Melena (principal); U07.1 COVID-19; N17.0 Acute kidney failure with tubular necrosis; Z96.612 Presence of left artificial shoulder joint; E78.5 Hyperlipidemia, unspecified; E11.42 Type 2 diabetes mellitus with diabetic polyneuropathy; E11.22 Type 2 diabetes mellitus with diabetic chronic kidney disease; I12.9 Hypertensive chronic kidney disease with stage 1 through stage 4 chronic kidney disease, or unspecified chronic kidney disease; K21.9 Gastro-esophageal reflux disease without esophagitis; Z86.16 Personal history of COVID-19; R07.9 Chest pain, unspecified; D50.9 Iron deficiency anemia, unspecified; N18.9 Chronic kidney disease, unspecified; K86.9 Disease of pancreas, unspecified; Z90.5 Acquired absence of kidney; Z85.528 Personal history of other malignant neoplasm of kidney; Z79.82 Long term (current) use of aspirin; Z79.899 Other long term (current) drug therapy; K22.4 Dyskinesia of esophagus; R13.10 Dysphagia, unspecified
CPT/HCPCS: 10080